=== PATIENT | female | born 1945 | race Caucasian/White ===

== ENCOUNTER → 2016-05-30 | Outpatient (CLI) | payer OTHER ==
[~2016-05-30] MED LIST: ASPIRIN EC325 M1; CALCIUM OYSTER500 MG; CYANOCOBALAM1000 MCG; NAPROSYN500 MG; PREDNISONE50 MG PO; SIMVASTATIN40 MG; VITAMIN D400 UNI1; VITAMIN E400 UNIT; ZANTAC 150MG T150 M1
== END ==
LOC: HYPER 06:59
DX: I87.2 Venous insufficiency (chronic) (peripheral) (principal); L97.812 Non-pressure chronic ulcer of other part of right lower leg with fat layer exposed; L97.822 Non-pressure chronic ulcer of other part of left lower leg with fat layer exposed; I10 Essential (primary) hypertension; I73.9 Peripheral vascular disease, unspecified; E78.5 Hyperlipidemia, unspecified; E03.9 Hypothyroidism, unspecified; Z87.891 Personal history of nicotine dependence

== ENCOUNTER → 2016-06-07 | Outpatient (CLI) | payer OTHER | LOC: HYPER 06:55 | DX: I87.2 Venous insufficiency (chronic) (peripheral) (principal); L97.821 Non-pressure chronic ulcer of other part of left lower leg limited to breakdown of skin; L97.811 Non-pressure chronic ulcer of other part of right lower leg limited to breakdown of skin; I73.9 Peripheral vascular disease, unspecified; I10 Essential (primary) hypertension; E78.5 Hyperlipidemia, unspecified; E03.9 Hypothyroidism, unspecified; Z87.891 Personal history of nicotine dependence ==

== ENCOUNTER → 2016-08-02 | Outpatient (CLI) | payer OTHER | LOC: HYPER 07:05 | DX: I87.2 Venous insufficiency (chronic) (peripheral) (principal); L97.822 Non-pressure chronic ulcer of other part of left lower leg with fat layer exposed; L97.812 Non-pressure chronic ulcer of other part of right lower leg with fat layer exposed; I10 Essential (primary) hypertension; I73.9 Peripheral vascular disease, unspecified; E78.5 Hyperlipidemia, unspecified; E03.9 Hypothyroidism, unspecified; Z87.891 Personal history of nicotine dependence ==

== ENCOUNTER 2016-08-09 18:24 | Inpatient (IN) | payer OTHER ==
[2016-08-09] VITALS (7 sets, daily range): BP systolic 143–159; BP diastolic 54–93
[~2016-08-09] VITALS: Ht 177.8 cm; Wt 91.2 kg
--- NOTE | ~2016-08-09 | H ---
[facility] [place] [address] HISTORY AND PHYSICAL Name: BRANDI MORROW Room #: 243-P [facility] IN M.R.#: [id number] Admission: 08/09/16 Attend Phys: Huber Turcios MD, Discharge: 08/11/16 Date of : 47 Report #: [id number] THIS REPORT FOR: //name// CC: Huber Morales DATE OF SERVICE: 08/09/2016 HISTORY OF PRESENT ILLNESS: The patient is a 70-year-old female transferred here from [place] where she had had an acute onset of painful right lower extremity, cool and significant right foot pain. Presented to the [place] Emergency Room between 12:00 and 1:00 today. Subsequently, found to have a cold extremity and transferred here at [facility], Dr. Castañeda had seen the patient on August 03 for nonhealing wounds, referred from Dr. Vilchis of wound care. He had recommended smoking cessation and undergone arteriogram, but it had only nonhealing wounds and not this acute pain at that setting, so he saw her a week ago. Scheduled for cardiac catheterization lab and vascular lab at on August 14. Subsequently, had this sudden attack of discomfort and transferred here to [facility]. She has been compliant with her medications. She does not actually have cardiac history. Longstanding tobacco use. MEDICATIONS: She was currently on vitamin D, vitamin E, ranitidine, Naprosyn, aspirin, levothyroxine, lisinopril 20, atorvastatin 40, fexofenadine hydrochlorothiazide 25, Trental 400 b.i.d. with meals and acyclovir. PAST MEDICAL HISTORY: Positive for the peripheral disease with prior stents in 2014, possibly in [facility]. There was a fem-fem bypass, possibly in 2006 . We have no records of this. Hypertension, hypercholesterolemia, hypothyroidism, COPD, tobacco use and DJD. PAST SURGICAL HISTORY: No other prior surgeries. FAMILY HISTORY: She is adopted, so it is unknown. SOCIAL HISTORY: She is . She has five children. She has had been a long time tobacco user, now down to 5 or so a day. No alcohol. Moderate caffeine. REVIEW OF SYSTEMS: Negative except for the progressive dyspnea and limitations by claudication. Also as stated above. ALLERGIES: CODEINE, TRIPLE ANTIBIOTIC, PENICILLIN, LEVAQUIN, DOXYCYCLINE, CEPHALOSPORIN and NEOMYCIN. LABORATORY DATA: Laboratory work apparently from [place], no need to review, but [address] [address] HISTORY AND PHYSICAL Name: BRANDI MORROW Room #: [address] [place] [address] IN M.R.#: [id number] Admission: 08/09/16 Attend Phys: Huber Turcios MD, Discharge: 08/11/16 Date of : 47 Report #: [id number] I am understanding the creatinine is somewhere between 1.4 and 1.6. H and H is 12 and 40.3. Potassium 3.0, creatinine 1.8, calcium 8.9 and GFR 29. White count was 12.3 and platelets 311. Liver function tests were normal. PHYSICAL EXAMINATION: GENERAL: She is to out of the IR suite, Dr. Castañeda was successful in opening the right common external iliac down to the femoral artery, but then significant clot. She is in still a fair amount of distress. VITAL SIGNS: Blood pressure 140/54 and pulse 60s. HEENT: Eyes reveal xanthelasmas. Pharynx is clear. NECK: Shows preserved upstrokes. Questionable faint right-sided bruit. No JVD. LUNGS: Have prolonged sitting phase. CARDIAC: S1 and S2 distant. ABDOMEN: Soft and faintly palpable aorta, although no significant bruit. It is not fairly large. EXTREMITIES: The right foot is cool. There are nonhealing bilateral ulcers, right greater than left on the medial aspect of the foot and ankle. I cannot palpate the distal pulses on the right, perhaps faintly on the left. She has no sensation to touch, but she can wiggle her foot and this is an improvement over the pre-intervention. SKIN: Warm and dry with the exception of the bilateral medial foot ulcers. ASSESSMENT: 1. Acute limb ischemia with right iliac occlusion. 2. Chronic kidney disease. 3. Degenerative joint disease. 4. Chronic obstructive pulmonary disease, continued tobacco use. 5. Hypertension. 6. Hypercholesterolemia. RECOMMENDATIONS AND PLAN: Hemodynamically, she is stable. Currently, has Integrilin and TPA in place for overnight drip, intra-arterial. It looks like this was initially caused by acute occlusion of the fem-fem graft with embolization of the right common, right popliteal arteries and infrapopliteal vessels. Emergency surgery was considered with Dr. Whiteside but they are trying recannulization with thrombolysis, maybe the safest way to proceed at this point. She is at high risk for an amputation and the family is aware. We will repeat a.m. lab. EKG in the morning and pain control the night, IV fluids and proceed back to reevaluate probably tomorrow early afternoon approximately 1800 hours from now. Certainly, this is a critical state here. Her cardiovascular status is stable currently. I have no records of her cardiovascular status, but obviously we could not evaluate this at this time and we will continue to follow closely. [facility] [place] [address] HISTORY AND PHYSICAL Name: BRANDI MORROW Room #: 243-P [facility] IN M.R.#: [id number] Admission: 08/09/16 Attend Phys: Huber Turcios MD, Discharge: 08/11/16 Date of : 47 Report #: [id number] Thank you for asking me to assist in the care of this patient. <ELECTRONICALLY SIGNED> By: Huber Turcios MD, FACC 08/15/16 0820 2329 0119 Huber Turcios MD, FACC /nt
--- NOTE | ~2016-08-09 | D ---
[facility] [place] [address] DISCHARGE SUMMARY Name: BRANDI MORROW Room #: [facility] IN M.R.#: [id number] Admission: 08/09/16 Attend Phys: Huber Turcios MD, Discharge: 08/11/16 Date of : 47 Report #: [id number] THIS REPORT FOR: //name// CC: Huber Morales MD HOSPITAL COURSE: A 70-year-old female who was admitted with acute right lower cold extremity. Emergently taken to the IR suite by Dr. Castañeda and was able to re-canalize the right common external iliac. There was a fem-fem graft occlusion from left to right and this was remained occluded. He used lytics and Integrilin drip and then subsequently came back and then placed a catheter more distal and was eventually able a clean-up the entire SFA and trifurcation. Final result was quite impressive. She had a cold, numb pulse for this foot and neurologically, was not intact, but this is now nearly completely returned to normal. She has been on aspirin, lisinopril 20, Lipitor 40, fexofenadine and hydrochlorothiazide. We will discontinue the Trental as we will go discharge on an anticoagulant and would favor perhaps a direct thrombin inhibitor, Pradaxa 150 b.i.d. with an aspirin and all of her remaining medications to continue, with the exception of the Trental. Tolerated this well with regards to any chest pain or anginal-type complaints, but will need further cardiac evaluation. Creatinine 1.0 today, potassium 4.6. H and H are 11 and 33, white count is 10. There was complete resolution of the thrombus to clarify, with good right posterior tibial and peroneal branch runoff to the plantar, which showed minimal residual. The anterior tibial artery on the right is occluded and believed to be chronic. The foot is warm, with good color and sensation. DISCHARGE DIAGNOSES: 1. Acute limb ischemia with acute arterial occlusion, fem-fem bypass, right iliac system and distal. 2. Hypertension. 3. Hypercholesterolemia. 4. Tobacco use. 5. Degenerative joint disease. 6. Hypothyroidism. 7. Chronic obstructive pulmonary disease. RECOMMENDATIONS AND PLAN: As stated above. Increase activity as tolerated. Has followup in 3 months with a repeat arterial Doppler and Dr. Castañeda and myself. We will consider some sort of further cardiac evaluation. He has noted progressive dyspnea and shortness of breath prior to this acute occlusion. It is quite impressive that Dr. Castañeda was able to restore patency of this arterial system of the right lower extremity. [address] [address] DISCHARGE SUMMARY Name: BRANDI MORROW Room #: [facility] IN M.R.#: [id number] Admission: 08/09/16 Attend Phys: Huber Turcios MD, Discharge: 08/11/16 Date of : 47 Report #: [id number] Thank you for asking us to assist in the care of this patient. <ELECTRONICALLY SIGNED> By: Huber Turcios MD, FACC 08/15/16 0820 0931 1010 Huber Turcios MD, FACC /nt
--- NOTE | ~2016-08-09 | HC ---
[facility] [place] [address] CONSULTATION Name: BRANDI MORROW Room #: [facility] IN M.R.#: [id number] Admission: 08/09/16 Attend Phys: Huber Turcios MD, Discharge: Date of : 47 Report #: [id number] THIS REPORT FOR: //name// CC: Huber Morales DATE OF SERVICE: 08/10/2016 This is an established patient. CHIEF COMPLAINT: Right foot acute ischemia. HISTORY OF PRESENT ILLNESS: This is a pleasant white female who I had been following for several weeks for chronic ulcerations on bilateral ankles. The patient called us on the night of her admission complaining of numbness below her right knee. The patient stated it came on fairly suddenly. The patient has history of known arterial disease and was actually scheduled for an outpatient angiogram next week by Dr. Castañeda. I asked the patient if she would call Dr. Castañeda to ask his opinion and she did. They felt that it was best for the patient to come to the emergency department. When she came to the emergency department, she was found to have a dusky colored right foot, which was cool to touch and they were unable to palpate pulses. Dr. Castañeda started the patient on TPA, and as of this morning, on the , the patient had complete resolution of the thrombus in her right common femoral artery and right profunda and right popliteal arteries. The patient states that her pain is markedly improved. Her sensation is improving. The patient has no other associated complaints at this time. The patient denies chest pain, shortness of breath, nausea, vomiting, diarrhea, fevers or chills. CURRENT MEDICATIONS: Reviewed. DRUG ALLERGIES: . PHYSICAL EXAMINATION: VITAL SIGNS: Stable. The patient is afebrile. The patient is in the ICU on the TPA drip. GENERAL: This is alert and oriented times 3, pleasant white female, who is in no acute distress. HEENT: Normocephalic, atraumatic. Mucous membranes are somewhat dry. Pupils are round. Sclerae are white. LUNGS: Have nonlabored respirations. HEART: Regular without murmur. ABDOMEN: Soft, nontender. EXTREMITIES: Evaluation of the bilateral lower extremities reveals 1+ dorsalis pedis pulse on the left, faint dorsalis pedis pulse on the right. Right foot is somewhat still slightly dusky, especially on the toes. However, the foot is [facility] [address] [place] [address] CONSULTATION Name: BRANDI MORROW Room #: 243-P [facility] IN M.R.#: [id number] Admission: 08/09/16 Attend Phys: Huber Turcios MD, Discharge: Date of : 47 Report #: [id number] currently warm. The patient has fairly normal movement of the foot. The toes have some slight tingling with palpation. The left foot is totally normal. Bilateral ulcerations are stable from clinic visit earlier this week. There is mix of granulation and slough, without signs of cellulitis. NEUROLOGIC: Cranial nerves 2-12 are grossly intact. Motor and sensory grossly intact. LABORATORY DATA: White count was 12.9, hemoglobin 10.7. BUN 22, creatinine 1.5. IMPRESSION: 1. Chronic bilateral ankle ulcerations with breakdown to the fat layer. 2. Peripheral arterial disease, status post acute ischemic event to the right foot, now status post TPA infusion. 3. History of tobaccoism. 4. Mild protein-calorie malnutrition. PLAN: At this time, for the wounds, we will put the patient on morphine and Silvadene compound to the wound base, cover this with Xeroform and then cover with an ABD. The patient will continue with antibiotics per Dr. Castañeda's orders. We will continue to follow the patient very closely. Also try to maximize the patient's protein supplementation for healing. I appreciate the ability to consult and we will continue to follow the patient. By: 0812 1106 Bakari Vilchis MD /nt
--- NOTE | ~2016-08-09 | EKG ---
[address] [address] ELECTROCARDIOGRAM REPORT Name: BRANDI MORROW Room #: 243- ADM IN M.R.#: [id number] Admission: 08/09/16 Attend Phys: Huber Turcios MD, Discharge: Date of : 47 Report #: [id number] THIS REPORT FOR: //name// [facility] Test Date: 2016-08-10 Test Time: 06:38:44 Pat Name: BRANDI MORROW Department: Room: 243 Gender: F Catalyst Concentration Operator: mina : 1945 Requested By: Huber Turcios Order Number: [id number] : Danyel Elizabeth Measurements Intervals [place] Rate: 67 P: 70 MD: 174 QRS: 46 QRSD: 84 T: 76 QT: 367 QTc: 388 Interpretive Statements Sinus rhythm Anteroseptal infarct, age indeterminate No previous ECG available for comparison Electronically Signed On 08-11-2016 13:23:27 CDT by Danyel Elizabeth [email or web address] <ELECTRONICALLY SIGNED> By: Danyel Elizabeth MD 08/11/16 1323 7 7 Danyel Elizabeth MD /BELGICA
--- NOTE | ~2016-08-09 | HC ---
[facility] [place] [address] CONSULTATION Name: BRANDI MORROW Room #: 243-P [facility] IN M.R.#: [id number] Admission: 08/09/16 Attend Phys: Huber Turcios MD, Discharge: 08/11/16 Date of : 47 Report #: [id number] THIS REPORT FOR: //name// CC: Huber Morales DATE OF SERVICE: 08/10/2016 We were asked by Dr. Castañeda to see the patient. HISTORY OF PRESENT ILLNESS: The patient is a 70-year-old with acute arterial insufficiency. The patient states that yesterday the foot became cold and later lost motion and sensation. The patient has a history of arterial occlusive disease in the past. Sometime the patient had a right common iliac stent placement and in 2014 the patient had a femoral-femoral bypass. The patient has been seen in the wound care clinic for nonhealing lesions in [place] [facility] [place] and then in the throes of this, the acute arterial insufficiency developed yesterday. We note that last night the patient was taken acutely to the labor arbitrator hearing office by Dr. Castañeda. Dr. Castañeda was able to a pass a wire from the left femoral artery through an occlusion of the right common iliac and opened the occluded common and external iliac with stent placement. TPA was dripped through the night and the patient had improvement in her symptoms by morning. PAST MEDICAL HISTORY: Significant for pernicious anemia, arterial occlusive disease, hyperlipidemia, gastroesophageal reflux disease, leg ulcers. MEDICATIONS AT HOME: Aspirin, vitamin E, calcium, Naprosyn, ranitidine, vitamin D, levothyroxine, lisinopril, atorvastatin, fexofenadine, hydrochlorothiazide, pentoxifylline, valacyclovir. ALLERGIES: BACITRACIN, CEPHALOSPORIN, CODEINE, COLISTIMETHATE, DOXYCYCLINE, GRAMICIDIN, LEVOFLOXACIN, PENICILLINS, POLYMYXIN B, TETRACYCLINE, NEOMYCIN, , PIROXICAM. SOCIAL HISTORY: The patient continues to smoke tobacco. REVIEW OF SYSTEMS: CONSTITUTIONAL: No fever or chills. EYES: Wears glasses. No vision changes. No eye pain. HEENT: No hearing changes, nasal drainage, sore throat. RESPIRATORY: No cough, shortness of breath, sputum production. CARDIOVASCULAR: No chest pain. GASTROINTESTINAL: No nausea, vomiting, diarrhea. GENITOURINARY: No burning, frequency, urgency. [address] [address] CONSULTATION Name: BRANDI MORROW Room #: 243-P [facility] IN ..#: [id number] Admission: 08/09/16 Attend Phys: Huber Turcios MD, Discharge: 08/11/16 Date of : 47 Report #: [id number] MUSCULOSKELETAL: No new bone or joint pain. SKIN: No rash or infection. We do note the nonhealing lesions being treated in the right gaiter area. NEUROLOGIC: Motor and sensory changes with the acute arterial insufficiency, none before. PHYSICAL EXAMINATION: VITAL SIGNS: Temperature 36.4, heart rate 69, respiratory rate 12, blood pressure 100/50. HEENT: No scleral icterus, no arcus. Pupils equal, round, gaze conjugate. No oral or nasal injection. NECK: No mass, no lymphadenopathy, no bruit. CHEST: Clear to auscultation. HEART: Rhythm regular, no murmur. ABDOMEN: Soft. EXTREMITIES: Left lower extremity catheter is in the left femoral artery. Left leg is warm and pink. No edema. Right leg warm to calf. Foot is and somewhat pale relative to left. Femoral pulse 1+ on right. I do not feel right popliteal pulse or dorsalis pedis or posterior tibial pulse. There is a signal in the popliteal fossa. There is some motion in the right foot and sensation where as there was little to none last night at the outset of treatment. ASSESSMENT: The patient has acute arterial insufficiency with an acute occlusion of the femoral-femoral bypass. Circulation has been restored with Dr. Castañeda's procedure, but TPA and Integrilin continued to be instilled over the day in the hopes that more recovery will eventuate in the distal arterial system. At this point, we plan no surgical intervention, but will follow along. Thank you for the consult. <ELECTRONICALLY SIGNED> By: dAitya Walton MD 08/23/16 0814 1055 1808 Aditya Walton MD /nt
[~2016-08-09 18:24] MED LIST changes: -ALLERGY RELIEF180 MG PO; -CALCIUM 600 +1 EAC1 PO; -HYDROCHLOROTHIA25 M2 PO; -LEVOTHYROXINE0.05 MG PO; -LIPITOR40 MG PO; -LISINOPRIL20 MG PO; -PENTOXIFYLLINE400 MG PO; -PRADAXA150 MG PO; -VALACYCLOVIR HCL1 GM PO; -VITAMIN D5000 UNIT PO
[2016-08-09] MEDS ORDERED: CALCIUM 600 +1 EAC1 PO (19:05)
[2016-08-09] MEDS ORDERED: VITAMIN D5000 UNIT PO (19:06)
[2016-08-09] MEDS ORDERED: LEVOTHYROXINE0.05 MG PO (19:08)
[2016-08-09] MEDS ORDERED: LISINOPRIL20 MG PO (19:08)
[2016-08-09] MEDS ORDERED: ALLERGY RELIEF180 MG PO (19:09)
[2016-08-09] MEDS ORDERED: LIPITOR40 MG PO (19:09)
[2016-08-09] MEDS ORDERED: PENTOXIFYLLINE400 MG PO (19:10)
[2016-08-09] MEDS ORDERED: HYDROCHLOROTHIA25 M2 PO (19:10)
[2016-08-09] MEDS ORDERED: VALACYCLOVIR HCL1 GM PO (19:11)
[2016-08-10] VITALS (31 sets, daily range): BP systolic 89–168; BP diastolic 45–89
[2016-08-10 05:06] LABS: HEMATOCRIT 32.5 % (37.0-47.0); HEMOGLOBIN 10.7 gm/dL (12.0-15.0); MCHC 32.8 g/dL (28.0-37.0); MCV 91.4 fL (80.0-100.0); RBC 3.56 mil/uL (4.20-5.00); RDW 14.2 % (10.5-14.5); WBC 12.9 thou/uL (4.0-11.0)
[2016-08-10 05:16] LABS: CALCIUM 7.9 mg/dL (8.5-10.1); CREATININE 1.5 mg/dL (0.6-1.3); POTASSIUM 4.3 mmol/L (3.5-5.1)
[2016-08-10 18:21] LABS: MCH 30.2 pg (26.0-34.0); MCHC 33.2 g/dL (28.0-37.0); RBC 3.63 mil/uL (4.20-5.00); RDW 14.6 % (10.5-14.5)
[2016-08-10 18:35] LABS: APTT 28.5 Seconds (24.5-32.8); INR 1.1; PROTIME 11.9 Seconds (9.3-11.4)
[2016-08-11] VITALS (13 sets, daily range): BP systolic 89–153; BP diastolic 51–89
[2016-08-11 09:07] LABS: CALCIUM 8.2 mg/dL (8.5-10.1); POTASSIUM 4.6 mmol/L (3.5-5.1)
[2016-08-11] MEDS ORDERED: PRADAXA150 MG PO (09:29)
== END 2016-08-11 13:30 | disposition home or self-care (01) | DRG 253 ==
LOC: ER 18:24 → ICU 18:44 → EROBS 18:44 → ICU 19:55
PROVIDERS: Internal Medicine Cardiovascular Disease; Nuclear Medicine Nuclear Cardiology; Nurse Practitioner Gerontology
PROC: 047H3DZ Dilation of Right External Iliac Artery with Intraluminal Device, Percutaneous Approach (ICD-10-PCS; principal; 2016-08-09)
PROC: B41 Imaging, Lower Arteries, Fluoroscopy (ICD-10-PCS; principal; 2016-08-09)
PROC: B41 Imaging, Lower Arteries, Fluoroscopy (ICD-10-PCS; principal; 2016-08-09)
PROC: 3E03317 Introduction of Other Thrombolytic into Peripheral Vein, Percutaneous Approach (ICD-10-PCS; principal; 2016-08-09)
PROC: 047C3DZ Dilation of Right Common Iliac Artery with Intraluminal Device, Percutaneous Approach (ICD-10-PCS; principal; 2016-08-09)
PROC: 3E05017 Introduction of Other Thrombolytic into Peripheral Artery, Open Approach (ICD-10-PCS; 2016-08-10)
DX: I74.5 Embolism and thrombosis of iliac artery (principal); N17.9 Acute kidney failure, unspecified; E44.1 Mild protein-calorie malnutrition; L97.329 Non-pressure chronic ulcer of left ankle with unspecified severity; L97.319 Non-pressure chronic ulcer of right ankle with unspecified severity; M19.90 Unspecified osteoarthritis, unspecified site; J44.9 Chronic obstructive pulmonary disease, unspecified; E78.5 Hyperlipidemia, unspecified; I73.9 Peripheral vascular disease, unspecified; I99.8 Other disorder of circulatory system; I12.9 Hypertensive chronic kidney disease with stage 1 through stage 4 chronic kidney disease, or unspecified chronic kidney disease; N18.9 Chronic kidney disease, unspecified; F17.210 Nicotine dependence, cigarettes, uncomplicated; I77.1 Stricture of artery; E78.00 Pure hypercholesterolemia, unspecified; E03.9 Hypothyroidism, unspecified; Z88.1 Allergy status to other antibiotic agents; Z88.6 Allergy status to analgesic agent; Z88.0 Allergy status to penicillin; Z88.8 Allergy status to other drugs, medicaments and biological substances; Z68.28 Body mass index [BMI] 28.0-28.9, adult; Z79.82 Long term (current) use of aspirin; Z79.899 Other long term (current) drug therapy
CPT/HCPCS: 10078

== ENCOUNTER → 2016-08-09 | Outpatient (CLI) | payer OTHER ==
[~2016-08-09] MED LIST changes: +ALLERGY RELIEF180 MG PO; +CALCIUM 600 +1 EAC1 PO; +HYDROCHLOROTHIA25 M2 PO; +LEVOTHYROXINE0.05 MG PO; +LIPITOR40 MG PO; +LISINOPRIL20 MG PO; -NAPROSYN500 MG; +NAPROSYN500 MG PO; +PENTOXIFYLLINE400 MG PO; +PRADAXA150 MG PO; +VALACYCLOVIR HCL1 GM PO; +VITAMIN D5000 UNIT PO; -ZANTAC 150MG T150 M1; +ZANTAC 150MG T150 M1 PO
== END ==
LOC: HYPER 07:17
DX: I87.2 Venous insufficiency (chronic) (peripheral) (principal); L97.812 Non-pressure chronic ulcer of other part of right lower leg with fat layer exposed; L97.822 Non-pressure chronic ulcer of other part of left lower leg with fat layer exposed; I73.9 Peripheral vascular disease, unspecified; I10 Essential (primary) hypertension; E03.9 Hypothyroidism, unspecified; E78.5 Hyperlipidemia, unspecified; Z87.891 Personal history of nicotine dependence

== ENCOUNTER → 2016-08-23 | Outpatient (CLI) | payer OTHER ==
[~2016-08-23] MED LIST changes: +ALLERGY RELIEF180 MG PO; +CALCIUM 600 +1 EAC1 PO; +HYDROCHLOROTHIA25 M2 PO; +LEVOTHYROXINE0.05 MG PO; +LIPITOR40 MG PO; +LISINOPRIL20 MG PO; +PENTOXIFYLLINE400 MG PO; +PRADAXA150 MG PO; +VALACYCLOVIR HCL1 GM PO; +VITAMIN D5000 UNIT PO
== END ==
LOC: HYPER 07:03
DX: I87.2 Venous insufficiency (chronic) (peripheral) (principal); L97.812 Non-pressure chronic ulcer of other part of right lower leg with fat layer exposed; L97.822 Non-pressure chronic ulcer of other part of left lower leg with fat layer exposed; I73.9 Peripheral vascular disease, unspecified; I10 Essential (primary) hypertension; E78.5 Hyperlipidemia, unspecified; E03.9 Hypothyroidism, unspecified; Z87.891 Personal history of nicotine dependence

== ENCOUNTER → 2016-09-06 | Outpatient (CLI) | payer OTHER | LOC: HYPER 07:06 | DX: I87.2 Venous insufficiency (chronic) (peripheral) (principal); L97.812 Non-pressure chronic ulcer of other part of right lower leg with fat layer exposed; L97.822 Non-pressure chronic ulcer of other part of left lower leg with fat layer exposed; I10 Essential (primary) hypertension; I73.9 Peripheral vascular disease, unspecified; E78.5 Hyperlipidemia, unspecified; E03.9 Hypothyroidism, unspecified; Z87.891 Personal history of nicotine dependence ==

== ENCOUNTER → 2016-09-20 | Outpatient (CLI) | payer OTHER | LOC: HYPER 06:59 | DX: I87.2 Venous insufficiency (chronic) (peripheral) (principal); L97.812 Non-pressure chronic ulcer of other part of right lower leg with fat layer exposed; L97.822 Non-pressure chronic ulcer of other part of left lower leg with fat layer exposed; I73.9 Peripheral vascular disease, unspecified; I10 Essential (primary) hypertension; E78.5 Hyperlipidemia, unspecified; E03.9 Hypothyroidism, unspecified; Z87.891 Personal history of nicotine dependence ==

== ENCOUNTER → 2016-10-12 | Outpatient (CLI) | payer OTHER | LOC: HYPER 07:11 | DX: I87.2 Venous insufficiency (chronic) (peripheral) (principal); L97.812 Non-pressure chronic ulcer of other part of right lower leg with fat layer exposed; L97.822 Non-pressure chronic ulcer of other part of left lower leg with fat layer exposed; I73.9 Peripheral vascular disease, unspecified; I10 Essential (primary) hypertension; E78.5 Hyperlipidemia, unspecified; E03.9 Hypothyroidism, unspecified; Z87.891 Personal history of nicotine dependence ==

== ENCOUNTER → 2016-11-01 | Outpatient (CLI) | payer OTHER | LOC: HYPER 07:00 | DX: I87.2 Venous insufficiency (chronic) (peripheral) (principal); L97.812 Non-pressure chronic ulcer of other part of right lower leg with fat layer exposed; L97.822 Non-pressure chronic ulcer of other part of left lower leg with fat layer exposed; I10 Essential (primary) hypertension; E78.5 Hyperlipidemia, unspecified; E03.9 Hypothyroidism, unspecified; I73.9 Peripheral vascular disease, unspecified; Z87.891 Personal history of nicotine dependence ==

== ENCOUNTER → 2016-11-22 | Outpatient (CLI) | payer OTHER | LOC: HYPER 06:53 | DX: I87.2 Venous insufficiency (chronic) (peripheral) (principal); L97.822 Non-pressure chronic ulcer of other part of left lower leg with fat layer exposed; L97.812 Non-pressure chronic ulcer of other part of right lower leg with fat layer exposed; I73.9 Peripheral vascular disease, unspecified; I10 Essential (primary) hypertension; E78.5 Hyperlipidemia, unspecified; E03.9 Hypothyroidism, unspecified; Z87.891 Personal history of nicotine dependence ==

== ENCOUNTER → 2016-12-06 | Outpatient (CLI) | payer OTHER | LOC: HYPER 06:56 | DX: I87.2 Venous insufficiency (chronic) (peripheral) (principal); L97.812 Non-pressure chronic ulcer of other part of right lower leg with fat layer exposed; L97.822 Non-pressure chronic ulcer of other part of left lower leg with fat layer exposed; I73.9 Peripheral vascular disease, unspecified; I10 Essential (primary) hypertension; E78.5 Hyperlipidemia, unspecified; E03.9 Hypothyroidism, unspecified; Z87.891 Personal history of nicotine dependence ==

== ENCOUNTER → 2017-01-03 | Outpatient (CLI) | payer OTHER | LOC: HYPER 06:50 | DX: I87.2 Venous insufficiency (chronic) (peripheral) (principal); L97.812 Non-pressure chronic ulcer of other part of right lower leg with fat layer exposed; L97.822 Non-pressure chronic ulcer of other part of left lower leg with fat layer exposed; I73.9 Peripheral vascular disease, unspecified; I10 Essential (primary) hypertension; E78.5 Hyperlipidemia, unspecified; E03.9 Hypothyroidism, unspecified; Z87.891 Personal history of nicotine dependence ==

== ENCOUNTER → 2017-01-24 | Outpatient (CLI) | payer OTHER | LOC: HYPER 06:43 | DX: I87.2 Venous insufficiency (chronic) (peripheral) (principal); L97.812 Non-pressure chronic ulcer of other part of right lower leg with fat layer exposed; L97.822 Non-pressure chronic ulcer of other part of left lower leg with fat layer exposed; I73.9 Peripheral vascular disease, unspecified; I10 Essential (primary) hypertension; E78.5 Hyperlipidemia, unspecified; E03.9 Hypothyroidism, unspecified; Z87.891 Personal history of nicotine dependence ==

== ENCOUNTER → 2017-02-14 | Outpatient (CLI) | payer OTHER | LOC: HYPER 07:00 | DX: I87.2 Venous insufficiency (chronic) (peripheral) (principal); L97.822 Non-pressure chronic ulcer of other part of left lower leg with fat layer exposed; L97.812 Non-pressure chronic ulcer of other part of right lower leg with fat layer exposed; I10 Essential (primary) hypertension; I73.9 Peripheral vascular disease, unspecified; E78.5 Hyperlipidemia, unspecified; E03.9 Hypothyroidism, unspecified; Z87.891 Personal history of nicotine dependence ==

== ENCOUNTER → 2017-03-07 | Outpatient (CLI) | payer OTHER | LOC: HYPER 06:57 | DX: I87.2 Venous insufficiency (chronic) (peripheral) (principal); L97.812 Non-pressure chronic ulcer of other part of right lower leg with fat layer exposed; L97.822 Non-pressure chronic ulcer of other part of left lower leg with fat layer exposed; I73.9 Peripheral vascular disease, unspecified; E78.5 Hyperlipidemia, unspecified; E03.9 Hypothyroidism, unspecified; Z87.891 Personal history of nicotine dependence ==

== ENCOUNTER → 2017-04-10 | Outpatient (CLI) | payer OTHER | LOC: HYPER 07:04 | DX: I87.2 Venous insufficiency (chronic) (peripheral) (principal); L97.812 Non-pressure chronic ulcer of other part of right lower leg with fat layer exposed; L97.822 Non-pressure chronic ulcer of other part of left lower leg with fat layer exposed; I73.9 Peripheral vascular disease, unspecified; I10 Essential (primary) hypertension; E78.5 Hyperlipidemia, unspecified; E03.9 Hypothyroidism, unspecified; Z87.891 Personal history of nicotine dependence ==

== ENCOUNTER → 2017-05-22 | Outpatient (CLI) | payer OTHER | LOC: HYPER 06:37 | DX: I87.2 Venous insufficiency (chronic) (peripheral) (principal); L97.812 Non-pressure chronic ulcer of other part of right lower leg with fat layer exposed; L97.822 Non-pressure chronic ulcer of other part of left lower leg with fat layer exposed; I73.9 Peripheral vascular disease, unspecified; I10 Essential (primary) hypertension; E03.9 Hypothyroidism, unspecified; E78.5 Hyperlipidemia, unspecified; Z87.891 Personal history of nicotine dependence ==

== ENCOUNTER → 2017-06-12 | Outpatient (CLI) | payer OTHER | LOC: HYPER 06:36 | DX: I87.2 Venous insufficiency (chronic) (peripheral) (principal); L97.812 Non-pressure chronic ulcer of other part of right lower leg with fat layer exposed; L97.822 Non-pressure chronic ulcer of other part of left lower leg with fat layer exposed; I73.9 Peripheral vascular disease, unspecified; I10 Essential (primary) hypertension; E78.5 Hyperlipidemia, unspecified; E03.9 Hypothyroidism, unspecified; Z87.891 Personal history of nicotine dependence ==

== ENCOUNTER → 2017-07-10 | Outpatient (CLI) | payer OTHER | LOC: HYPER 07-03 06:49 | DX: L97.821 Non-pressure chronic ulcer of other part of left lower leg limited to breakdown of skin (principal); L97.321 Non-pressure chronic ulcer of left ankle limited to breakdown of skin; L97.311 Non-pressure chronic ulcer of right ankle limited to breakdown of skin; I87.2 Venous insufficiency (chronic) (peripheral); I73.9 Peripheral vascular disease, unspecified; I10 Essential (primary) hypertension; E78.5 Hyperlipidemia, unspecified; E03.9 Hypothyroidism, unspecified; Z87.891 Personal history of nicotine dependence ==

== ENCOUNTER → 2017-08-06 | Outpatient (CLI) | payer OTHER | LOC: HYPER 07-30 06:59 | DX: L97.812 Non-pressure chronic ulcer of other part of right lower leg with fat layer exposed (principal); L97.822 Non-pressure chronic ulcer of other part of left lower leg with fat layer exposed; I87.2 Venous insufficiency (chronic) (peripheral); I73.9 Peripheral vascular disease, unspecified; I10 Essential (primary) hypertension; E78.5 Hyperlipidemia, unspecified; E03.9 Hypothyroidism, unspecified; Z87.891 Personal history of nicotine dependence ==

== ENCOUNTER → 2019-05-20 | Outpatient (CLI) | payer OTHER | LOC: SJCVC 08:55 | DX: Z51.81 Encounter for therapeutic drug level monitoring (principal); E03.9 Hypothyroidism, unspecified; I10 Essential (primary) hypertension; I73.9 Peripheral vascular disease, unspecified; M19.90 Unspecified osteoarthritis, unspecified site; Z79.01 Long term (current) use of anticoagulants ==

== ENCOUNTER → 2019-07-10 | Outpatient (CLI) | payer OTHER | LOC: SJCVC 08:41 | DX: Z51.81 Encounter for therapeutic drug level monitoring (principal); M19.90 Unspecified osteoarthritis, unspecified site; E78.00 Pure hypercholesterolemia, unspecified; I10 Essential (primary) hypertension; E03.9 Hypothyroidism, unspecified; I73.9 Peripheral vascular disease, unspecified; Z79.01 Long term (current) use of anticoagulants ==

== ENCOUNTER → 2019-08-08 | Outpatient (CLI) | payer OTHER | LOC: SJCVC 08:17 | DX: Z51.81 Encounter for therapeutic drug level monitoring (principal); I10 Essential (primary) hypertension; E78.00 Pure hypercholesterolemia, unspecified; M19.90 Unspecified osteoarthritis, unspecified site; Z79.01 Long term (current) use of anticoagulants; Z79.82 Long term (current) use of aspirin; Z79.899 Other long term (current) drug therapy ==

== ENCOUNTER → 2019-09-05 | Outpatient (CLI) | payer OTHER | LOC: SJCVC 07:37 | DX: Z51.81 Encounter for therapeutic drug level monitoring (principal); I10 Essential (primary) hypertension; E78.00 Pure hypercholesterolemia, unspecified; E03.9 Hypothyroidism, unspecified; M19.90 Unspecified osteoarthritis, unspecified site; Z79.01 Long term (current) use of anticoagulants; Z79.899 Other long term (current) drug therapy ==

== ENCOUNTER → 2019-10-31 | Outpatient (CLI) | payer OTHER | LOC: SJCVC 08:09 | PROVIDERS: ATTEND Internal Medicine Cardiovascular Disease | DX: Z51.81 Encounter for therapeutic drug level monitoring (principal); E03.9 Hypothyroidism, unspecified; I10 Essential (primary) hypertension; I73.9 Peripheral vascular disease, unspecified; I65.23 Occlusion and stenosis of bilateral carotid arteries; M19.90 Unspecified osteoarthritis, unspecified site; E78.00 Pure hypercholesterolemia, unspecified; Z79.01 Long term (current) use of anticoagulants ==

== ENCOUNTER → 2019-12-01 | Outpatient (CLI) | payer OTHER | LOC: SJCVC 07:40 | PROVIDERS: ATTEND Internal Medicine Cardiovascular Disease | DX: Z51.81 Encounter for therapeutic drug level monitoring (principal); Z79.01 Long term (current) use of anticoagulants ==

== ENCOUNTER → 2019-12-15 | Outpatient (CLI) | payer OTHER | LOC: SJCVC 07:34 | PROVIDERS: ATTEND Internal Medicine Cardiovascular Disease | DX: Z51.81 Encounter for therapeutic drug level monitoring (principal); Z87.891 Personal history of nicotine dependence ==

== ENCOUNTER → 2020-01-12 | Outpatient (CLI) | payer OTHER | LOC: SJCVC 07:45 | PROVIDERS: ATTEND Internal Medicine Cardiovascular Disease | DX: Z51.81 Encounter for therapeutic drug level monitoring (principal); E03.9 Hypothyroidism, unspecified; I10 Essential (primary) hypertension; I73.9 Peripheral vascular disease, unspecified; E78.00 Pure hypercholesterolemia, unspecified; Z79.01 Long term (current) use of anticoagulants; Z79.899 Other long term (current) drug therapy ==

== ENCOUNTER → 2020-01-20 | Outpatient (CLI) | payer OTHER | LOC: SJCVC 12:13 | PROVIDERS: ATTEND Internal Medicine Cardiovascular Disease | DX: Z51.81 Encounter for therapeutic drug level monitoring (principal); E03.9 Hypothyroidism, unspecified; I10 Essential (primary) hypertension; I73.9 Peripheral vascular disease, unspecified; M19.90 Unspecified osteoarthritis, unspecified site; E78.00 Pure hypercholesterolemia, unspecified; Z79.01 Long term (current) use of anticoagulants; Z79.899 Other long term (current) drug therapy ==

== ENCOUNTER → 2020-02-05 | Outpatient (CLI) | payer OTHER | LOC: SJCVCIMAG 07:30 | PROVIDERS: ATTEND Internal Medicine Cardiovascular Disease | DX: I65.23 Occlusion and stenosis of bilateral carotid arteries (principal); I73.9 Peripheral vascular disease, unspecified; I25.10 Atherosclerotic heart disease of native coronary artery without angina pectoris; E78.00 Pure hypercholesterolemia, unspecified; I10 Essential (primary) hypertension; F17.210 Nicotine dependence, cigarettes, uncomplicated; Z79.899 Other long term (current) drug therapy ==

== ENCOUNTER → 2020-09-07 | Outpatient (CLI) | payer OTHER | LOC: SJCVCIMAG 08:41 | PROVIDERS: ATTEND Internal Medicine Cardiovascular Disease | DX: I70.203 Unspecified atherosclerosis of native arteries of extremities, bilateral legs (principal); I77.9 Disorder of arteries and arterioles, unspecified; I25.10 Atherosclerotic heart disease of native coronary artery without angina pectoris; I10 Essential (primary) hypertension; E78.00 Pure hypercholesterolemia, unspecified; K21.9 Gastro-esophageal reflux disease without esophagitis; E78.5 Hyperlipidemia, unspecified; I65.23 Occlusion and stenosis of bilateral carotid arteries; F17.210 Nicotine dependence, cigarettes, uncomplicated; Z88.1 Allergy status to other antibiotic agents; Z88.0 Allergy status to penicillin; Z88.8 Allergy status to other drugs, medicaments and biological substances; Z88.5 Allergy status to narcotic agent; Z79.82 Long term (current) use of aspirin; Z79.899 Other long term (current) drug therapy; Z95.820 Peripheral vascular angioplasty status with implants and grafts ==

== ENCOUNTER 2021-02-16 10:16 | Inpatient (IN) | payer OTHER ==
[~2021-02-16] VITALS: Ht 177.8 cm; Wt 93.0 kg
--- NOTE | ~2021-02-16 | O ---
[facility] [place] [address] OPERATIVE REPORT Name: BRANDI MORROW Room #: 457-P ADM IN M.R.#: [id number] Admission: 02/16/21 Attend Phys: Malcom Allen MD Discharge: Date of : 47 Report #: [id number] THIS REPORT FOR: cc: Reynaldo Mckeon MD, David R. MD Kneidel, Matthew T. MD ~ DATE OF SERVICE: 02/18/2021 PREOPERATIVE DIAGNOSIS: Left leg chronic wound. POSTOPERATIVE DIAGNOSIS: Left leg chronic wound. PROCEDURE: Left leg wound irrigation and debridement. SURGEON: David Hernandez MD ROLLER STAINER: None. ANESTHESIA: General. ESTIMATED BLOOD LOSS: Minimal. DRAINS: No drains. TOURNIQUET TIME: 10 minutes. DESCRIPTION OF PROCEDURE: The patient was brought to the operating room where she was placed under general anesthesia. Once under adequate general anesthesia, her left lower extremity was prepped and draped in a sterile manner. The extremity was elevated and tourniquet placed to 300 mmHg. Utilizing the Bag [employer]orrow or [employer] ultrasonic debrider, the wound which was 6 cm in length and 4 cm in width, was then debrided of any necrotic tissue. Good bleeding edges and a bleeding base was then able to be attained. This was at the distal medial tibia and just posterior to this. Excellent debridement was achieved. The wound was then dressed with a wet-to-dry dressing with normal saline gauze. Tourniquet was let down at approximately 10 minutes. Toes were pink and warm with good capillary refill. There were no complications from the procedure. The patient tolerated the procedure well and went to the recovery room without incident. By: 1351 1416 David Hernandez MD /nt
--- NOTE | ~2021-02-16 | HC ---
[facility] [place] [address] CONSULTATION Name: BRANDI MORROW Room #: 457-P [facility] IN M.R.#: [id number] Admission: 02/16/21 Attend Phys: Malcom Allen MD Discharge: 02/21/21 Date of : 47 Report #: [id number] THIS REPORT FOR: cc: Reynaldo Mckeon MD, David R. MD Stephens, Thad A. MD ~ DATE OF SERVICE: 02/17/2021 WOUND CARE CONSULTATION PERSONAL PHYSICIAN: None on staff. CHIEF COMPLAINT: Left medial ankle ulceration. HISTORY OF PRESENT ILLNESS: This is a 75-year-old white female with a history of peripheral vascular disease, who I have seen in the past for vascular leg ulcers, which were slow to heal. The patient states that this current one on her left leg started approximately a month ago, it has gotten progressively worse. The patient denies much pain associated with this. The patient states she has had increased amount of greenish drainage from the ulceration and was concerned about a possible infection, which prompted her to come to the hospital, being admitted for evaluation. We have been asked to care for the wound at this time. Orthopedics has also been consulted as well. PAST MEDICAL HISTORY: Lower extremity arterial disease, hypertension, reflux, hypercholesterolemia, chronic ulcers, venous insufficiency. CURRENT MEDICATIONS: Multiple, reviewed the patient's medication list. DRUG ALLERGIES: NEOMYCIN, BACITRACIN, PENICILLIN, CEPHALOSPORINS, TETRACYCLINE AND QUINOLONES. SOCIAL HISTORY: The patient smokes half pack of cigarettes daily for 50 years. Denies alcohol use. FAMILY HISTORY: Not pertinent to current medical condition. REVIEW OF SYSTEMS: CONSTITUTIONAL: The patient denies fevers, chills. NEUROLOGIC: The patient denies numbness, tingling, weakness in arms or legs. EYES: No complaints. ENT: No complaints. CARDIAC: The patient denies chest pain, palpitations. Has chronic mild lower extremity edema. RESPIRATORY: The patient denies shortness of breath, cough, wheezes. GASTROINTESTINAL: The patient denies nausea, vomiting, abdominal pain. [facility] [address] [place] [address] CONSULTATION Name: BRANDI MORROW Room #: 457-P [facility] IN M.R.#: [id number] Admission: 02/16/21 Attend Phys: Malcom Allen MD Discharge: 02/21/21 Date of : 47 Report #: [id number] GENITOURINARY: The patient denies urgency or frequency. MUSCULOSKELETAL: No complaints. SKIN: There is chronic ulceration of left medial ankle with scar tissue on both lower extremities from previous ulcerations. PHYSICAL EXAMINATION: VITAL SIGNS: Stable. The patient is afebrile. GENERAL: This is alert and oriented x3, pleasant white female who is in no acute distress. HEENT: Head is normocephalic, atraumatic. Mucous membranes are moist. Pupils are round. Sclerae white. NECK: Without JVD. LUNGS: Clear. HEART: Regular. ABDOMEN: Soft, nontender. EXTREMITIES: The patient moves all extremities without difficulty. Evaluation of left medial ankle reveals a chronic ulceration with 100% slough filled. There is mild tenderness to palpation. There is moderate amount of serosanguineous drainage noted. There is no significant odor. Distal pulses are 1+. No other associated open wounds are noted. NEUROLOGIC: Cranial nerves 2-12 are grossly intact. Motor and sensory are grossly intact. LABORATORY VALUES: White count 6.9, hemoglobin 10.5. BUN 16, creatinine 1.1. Albumin 3.6. IMPRESSION: 1. Chronic ulcer, left medial ankle, consistent with mixed vascular disease. 2. History of peripheral arterial disease. 3. History of venous insufficiency. 4. History of chronic obstructive pulmonary disease. 5. Generalized debility. PLAN: We will order arterial Dopplers to evaluate for underlying arterial disease. I spoke with of orthopedics who is planning on taking the patient to the operating room today for Misonix debridement. In the meantime, we will start Dakin's wet-to-dry dressings b.i.d. on the ulcer and p.r.n. We will make sure we continue all other current medications. We will utilize physical and occupational therapy for strengthening. By: 1322 0141 Bakari Vilchis MD /nt
[2021-02-16 10:20] VITALS: BP 163/55
[2021-02-16 10:47] LABS: ABSOLUTE NEUTROPHILS 7.1 thou/uL (1.4-8.2); BASOPHILS 0.5 % (0.0-2.0); EOSINOPHILS 3.4 % (0.0-3.0); HEMATOCRIT 36.6 % (37.0-47.0); HEMOGLOBIN 11.8 gm/dL (12.0-15.0); LYMPHOCYTES 14.4 % (24.0-44.0); MCH 32.6 pg (26.0-34.0); MCHC 32.3 g/dL (28.0-37.0); MONOCYTES 8.5 % (1.0-8.0); PLATELET COUNT 357 thou/uL (150-400); POLYS 73.2 % (36.0-66.0); RBC 3.63 mil/uL (4.20-5.00); RDW 14.1 % (10.5-14.5); WBC 9.7 thou/uL (4.0-11.0)
[2021-02-16 11:23] LABS: CALCIUM 9.1 mg/dL (8.5-10.1); CREATININE 1.4 mg/dL (0.6-1.0); POTASSIUM 3.8 mmol/L (3.5-5.1)
[2021-02-16 11:30] LABS: ALBUMIN 3.6 g/dL (3.4-5.0); TOTAL BILIRUBIN 0.4 mg/dL (0.2-1.0); TOTAL PROTEIN 6.6 g/dL (6.4-8.2)
[2021-02-16 13:38] VITALS: BP 143/68
[2021-02-16] MEDS ORDERED: ACID REDUCER20 MG PO (13:51)
[2021-02-16 14:17] VITALS: BP 161/48
[2021-02-16] MEDS ORDERED: SYMBICORT80 MCG/4.1 PO (15:25)
[2021-02-16] MEDS ORDERED: SYMBICORT80 MCG/4.1 (15:31)
--- NOTE | 2021-02-16 16:02 | NUR ---
TODAY THIS PT IS A NEW ADMISSION AND SHE HAS HAD SOME STATED LEFT ANKLE PAIN IN WHICH SHE WAS MEDICATED. SHE HAS HAD HER WOUND ON HER LEFT ANKLE DRESSED WITH A WET TO DRY DRESSING FOR NOW UNTIL WOUND CARE SEES HER BUT OTHERWISE SHE AWAITS FOR THE NEXT PLAN.
[2021-02-16 20:15] VITALS: BP 152/65
--- NOTE | 2021-02-17 01:49 | NUR ---
ASSUMED CARE OF PT AT 1900.BEDSIDE REPORT RECIEVED. SUGAR ASSESSMENT COMPLETE. PT HAS DRY COUGH, PER PT D/T ASTHMA. [address] IVF INFUSING PER ORDERS. MEDS ADMINISTERED PER MAR, PRN NORCO GIVEN FOR LLE PAIN WHERE WOUND IS. LLE DRESSING CDI C NO APPARENT DRAINAGE. ASSISTED PT TO BED SBA C CANE. ALL NEEDS MET, CALL LIGHT IN REACH
[2021-02-17 05:41] LABS: HEMATOCRIT 32.6 % (37.0-47.0); HEMOGLOBIN 10.5 gm/dL (12.0-15.0); MCH 32.7 pg (26.0-34.0); MCHC 32.3 g/dL (28.0-37.0); MCV 101.1 fL (80.0-100.0); RBC 3.22 mil/uL (4.20-5.00); RDW 13.9 % (10.5-14.5); WBC 6.9 thou/uL (4.0-11.0)
[2021-02-17 06:12] LABS: CALCIUM 7.9 mg/dL (8.5-10.1); CREATININE 1.1 mg/dL (0.6-1.0); POTASSIUM 3.8 mmol/L (3.5-5.1)
[2021-02-17 07:29] VITALS: BP 157/66
--- NOTE | 2021-02-17 11:26 | HC ---
[facility] [place] [address] [address] CONSULTATION Name: BRANDI MORROW Room #: 457-P ADM IN M.R.#: [id number] Admission: 02/16/21 Attend Phys: Malcom Allen MD Discharge: Date of : 49 Report #: [id number] THIS REPORT FOR: cc: Reynaldo Mckeon MD, David R. MD Barry, Joseph W. MD ~ DATE OF SERVICE: 02/16/2021 INFECTIOUS DISEASE CONSULTATION DATE OF CONSULTATION: 02/16/2021 ATTENDING PHYSICIAN: Dr. Allen. REASON FOR EVALUATION: Left medial malleolar chronic ulceration complicated by increased inflammation, suspected infection. HISTORY OF PRESENT ILLNESS: Chart reviewed. The patient examined. This is a 75-year-old woman with history of hypertension, has known lower extremity peripheral arterial disease, who has issues with ulcers involving her distal lower extremities dating back to 1987, noted has had vascular procedures to improve her perfusion, spontaneously developed an ulcer roughly 2 months ago involving the medial aspect, overlying her malleolus on the left. She describes it as quite painful. In the recent days, had noted increasing greenish type drainage. Due to the concern about infection, she was evaluated in the emergency room. Coronavirus testing was negative. Plain film of the ankle shows no acute osseous changes. Lactic acid 1.3. She denies significant systemic illness. No fevers, chills. Appetite has been satisfactory. No pulmonary or gastrointestinal related complaints. She had undergone cultures of her blood. CURRENT MEDICINES: Include vancomycin, given a dose of ceftriaxone as well. ALLERGIES: LISTED TO NEOMYCIN, BACITRACIN, PENICILLIN, CEPHALOSPORINS, TETRACYCLINE AND QUINOLONES. PAST MEDICAL HISTORY: As described above, severe lower extremity arterial occlusive disease, hypertension, reflux, high cholesterol, chronic ulcers, suspect venous stasis insufficiency, dermatitis as well. SOCIAL HISTORY: Smokes cigarettes, half pack a day for 50 years. No ethanol, no illicit drug use. FAMILY HISTORY: Noncontributory. REVIEW OF SYSTEMS: Otherwise, unremarkable. [facility] [address] [place] [address] CONSULTATION Name: BRANDI MORROW Room #: 457-[facility] IN .R.#: [id number] Admission: 02/16/21 Attend Phys: Malcom Allen MD Discharge: Date of : 49 Report #: [id number] PHYSICAL EXAMINATION: GENERAL: She appears somewhat chronically ill, mildly undernourished. She is generally lucid, mild to moderate distress. VITAL SIGNS: Temperature 97.6, pulse 79, respirations 17, blood pressure 161/48. SKIN: Warm, dry, no rashes. HEENT: Normocephalic. Extraocular muscles intact. NECK: Supple. LUNGS: Diminished breath sounds. HEART: Regular, soft systolic murmur. ABDOMEN: Mildly distended, nontender. EXTREMITIES: Chronic dermopathy. Lower extremities with fairly extensive scarring around the ankle, in particular the left medial malleolus. There is a somewhat dusky appearing wound. There is no particular odor, no drainage at this point. the margins have moderate degree of inflammation, generally appears somewhat desiccated. GENITOURINARY AND RECTAL: Deferred. LABORATORY DATA: Lactic acid 1.3. X-ray as described above. Electrolytes: Sodium 143, potassium 3.8, chloride 106, bicarbonate is 29, anion gap of 8, BUN and creatinine 27 and 1.4, glucose of 124. LFTs unremarkable. Albumin 3.6, total protein 6.6. Estimated GFR of 37. Coronavirus testing was negative. CBC: White count of 9.7, H and H 11.8 and 36.6, platelets of 357. ASSESSMENT AND PLAN: Chronic ulcer, left medial malleolus. We have multifactorial etiology. Certainly vasculopathy would be a concern given her history, may need additional arterial studies, likely has some underlying venous stasis insufficiency as well. She is a candidate for compression, it is not entirely clear. Encouraged elevation. We will continue empiric broad spectrum therapy, given the appearance of the wound, we would be concerned about a polymicrobial etiology. She is apparently taking and tolerating the vancomycin. We will add aztreonam as well. Continue wound care as prescribed and incentive spirometry. Certainly at risk for complications. <ELECTRONICALLY SIGNED> By: Vaibhav Bryant MD 02/17/21 [id number] Vaibhav Bryant MD /nt
[2021-02-17 12:00] VITALS: BP 133/51
--- NOTE | 2021-02-17 15:21 | NUR ---
TODAY THIS PT HAS HAD SOME STATED PAIN IN WHICH SHE WAS MEDICATED SHE HAS HAD HER DRESSINGS CHANGED AND HAS BEEN TOLERATING HER MEDICATIONS AND FLUIDS WELL. SHE IS OTHERWISE IN HER ROOM AWAITING FOR THE NEXT PLAN.
--- NOTE | 2021-02-17 15:31 | NUR ---
PT ADMITTED RELATED TO L MEDIAL MALLEOLUS ULCERATION. CM REVIEWED CHART AND SPOKE WITH CARE TEAM. CM MET WITH PT AT BEDSIDE THIS DAY. PT APPEARED TO BE A&O X4. CM ROLE INTRODUCED. PT INDICATED SHE LIVES IN A HOUSE WITH HER DTR. PT INDICATED SHE HAD USED A SPC IN THE HOME. PT INDICATED NO HH OR OP THERAPY. 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 PT'S PCP IS DR. JANUARY CORTES.PT IS ON IV ABX, WC AND ORTHO CONSULTED. CM FOLLOWING REGARDING DC PLANNING.
[2021-02-17 19:57] VITALS: BP 123/58
--- NOTE | 2021-02-17 23:00 | NUR ---
PT ALERT AND ORIENTED X 4. AMB TO BR WITH CANE AND ASSIST X 1 WITHOUT DIFFICULTY. NON-PRODUCTIVE COUGH NOTED. IV INFUSING ORDERED. PT C/O PAIN IN LEFT FOOT. HYDROCODONE GIVEN ORDERED. DRESSING C/D/I TO LEFT FOOT. HS DRESSING NOT DONE SINCE PT HAD AM DRESSING DONE LATE AFTERNOON. PT CHECKED ON HOURLY ROUNDS.
[2021-02-18] VITALS (7 sets, daily range): BP systolic 133–172; BP diastolic 44–79
--- NOTE | 2021-02-18 12:33 | NUR ---
Notification of pt with left malleolus ulceration. hx chronic wounds, PAD, +tobacco use. Pt voices very good appetite and eats high protein foods consistently. Wt stable. NPO for debridement. Presents low nutrition risk
--- NOTE | 2021-02-18 15:00 | NUR ---
PT HAVING I&D OF LEFT LEG THIS DAY. PT IS ON IV VANC @12. CM FOLLOWING REGARDING DC PLANNING.
--- NOTE | 2021-02-18 15:06 | NUR ---
ASSUMED CARE OF PT AT 0700. THROUGHOUT THE MORNING PT RESTED QUIETLY IN HER ROOM WITH NO COMPLAINTS, VSS. ASSESSED L ANKLE WOUND IN AM WITH MD AND CHANGED DRESSING WITH [employer]. WAS KEPT NPO AFTER 2 BITES OF BREAKFAST FOR I+D PLANNED AT 2PM. AMBULATED WELL WITH THERAPY, FALL PRECAUTIONS IN PLACE. RETURNING FROM PROCEDURE NOW, WILL FOCUS ON PAIN MEDICATION AND REST THROUGHOUT AFTERNOON. WILL CONTINUE TO MONITOR.
--- NOTE | 2021-02-18 15:08 | NUR ---
PT HAVING I&D OF LEFT LEG THIS DAY. PT IS ON IV VANC Q12. THERAPY RECOMMENDING HOME HEALTH UPON DC. SHOULD PT ME MEDICALLY STABLE TO DC OVER WEEKEND CALL [facility] FA[facility] . CM FOLLOWING REGARDING DC PLANNING.
[2021-02-19 04:02] VITALS: BP 131/56
--- NOTE | 2021-02-19 05:05 | NUR ---
Pt. rested quietly at intervals during the night when checked on during frequent rounds. Dressing to left foot is dry and intact. Pt. given po pain meds for c/o pain to her left foot with somme relief noted (see emar).
[2021-02-19 06:51] LABS: HEMATOCRIT 30.2 % (37.0-47.0); HEMOGLOBIN 9.7 gm/dL (12.0-15.0)
[2021-02-19 07:00] LABS: POTASSIUM 4.3 mmol/L (3.5-5.1)
[2021-02-19 07:39] VITALS: BP 159/71
[2021-02-19 16:35] VITALS: BP 156/61
--- NOTE | 2021-02-19 18:43 | NUR ---
ASSUMED CARE OF PT AT 0700. PT CONTINUES TO BE AOX4, AMBULATE WITH SBA, PAIN CONTROLLED WITH INFREQUENT USES OF HYDRO, WITH NO NAUSEA AND STABLE VITALS. WOUND DRESSING CLEAN DRY INTACT, NO DRAINAGE. PT COMPLAINED OF BEING ON LIQUID DIET THROUGHOUT THE DAY BUT ID MD NEVER SAW HER. CALLED MD FONTENOT TO ASK FOR DIET CHANGE FOR DINNER AT LEAST. DIET SWITCHED TO REGULAR PER MD. PT RESTING IN ROOM, WILL CONTINUE TO MONITOR.
[2021-02-19 20:26] VITALS: BP 149/71
[2021-02-20 06:04] LABS: HEMATOCRIT 30.1 % (37.0-47.0); HEMOGLOBIN 9.7 gm/dL (12.0-15.0); MCH 32.5 pg (26.0-34.0); MCHC 32.1 g/dL (28.0-37.0); MCV 101.1 fL (80.0-100.0); RBC 2.98 mil/uL (4.20-5.00); RDW 13.9 % (10.5-14.5); WBC 8.5 thou/uL (4.0-11.0)
[2021-02-20 07:09] LABS: CALCIUM 7.7 mg/dL (8.5-10.1); CREATININE 1.1 mg/dL (0.6-1.0); POTASSIUM 3.6 mmol/L (3.5-5.1)
[2021-02-20 08:07] VITALS: BP 158/62
--- NOTE | 2021-02-20 09:28 | NUR ---
ASSUMED CARE AT 1900, PT HAS PRODUCTIVE COUGH WITH WHEEZING AUSCULTATED ON THE TRACHEA, RESOLVES AFTER CLEARING SECRETION AND HAVING BREATHING TREATMENT, REMAINS TO BE ON PAIN MANAGEMENT FROM THE LEFT ANKLE, NO ADVERSE REACTION NOTED FROM THE CURRENT TX WILL CONTINUE TO MONITOR.
[2021-02-20 16:19] VITALS: BP 169/75
--- NOTE | 2021-02-20 17:56 | NUR ---
Pt is A & O x4. Pt VS stable. Pt wound dressing changed my wound MD. Pt received medications as ordered. Pt is SBA with ambulation and independent with ADLs and cares. Pt is able to make needs known.
[2021-02-20 19:54] VITALS: BP 168/74
--- NOTE | 2021-02-21 02:16 | NUR ---
ASSUEMD CARE OF PT AT SHIFT CHANGE. PT IS AOX4 AND LETS NEEDS BE KNOWN. PT IS UP AD KALEB. PT REPORTED SOME LLE PAIN; PRNS PROVIDED. PT DENIED NAUSEA OR SOA. ASSESSMENT CHARTED. IV ABX CONTINUED. LLE DRESSING IS C/D/I. PT WAS ABLE TO GET COMFORTABLE AND SLEEP PART OF THE SHIFT. PT HAD ELEVATED BP; OTHER VSS. NO S/S OF ACUTE DISTRESS. WILL CONTINUE TO MONITOR FOR CHANGES.
[2021-02-21 05:00] VITALS: BP 153/72
[2021-02-21 09:30] VITALS: BP 145/64
[2021-02-21 11:08] VITALS: BP 163/64
[2021-02-21 12:39] VITALS: BP 154/64
--- NOTE | 2021-02-21 14:33 | NUR ---
Alert and orientated X 4. Calm and cooperative without s/o distress. Reported pain of 10 prior to drsg change, stated it was much improved and rated it a 5 after med. Breath sounds clear with good aeration. No nasal flaring or retractions. Reg HR auscultated. Color pink with brisk capillary refill and palpable peripheral pulses. Voiding yellow urine per toilet. Active bowel sounds over soft, rounded abdomen. States last BM was 2 days ago. NS infusing per R hand IV, soft and flat, flushes without difficulty. Wants to be discharged today, Dr. Allen states if all is fine at 1500 to page him and he will write discharge orders. Currently in room without s/o distress.
[2021-02-21 16:47] VITALS: BP 154/64
--- NOTE | 2021-02-21 16:48 | NUR ---
Pt anxious to dc home but she is still on iv atb and getting bid dressing changes. Cultures still pending but possible transition to po atb. Dayanna michel updated as the pt will need wound mngt in the home and home eliseo ochoa.
[2021-02-21] MEDS ORDERED: CIPROFLOXACIN500 M1 PO (16:58)
[2021-02-21] MEDS ORDERED: NORVASC10 MG PO (16:58)
[2021-02-21 17:24] VITALS: BP 154/64
== END 2021-02-21 17:30 | disposition home or self-care (01) | DRG 570 ==
LOC: ER 10:16 → EROBS 12:14 → 4W 12:14
PROVIDERS: Emergency Medicine; Orthopaedic Surgery Foot and Ankle Surgery; ADMIT Hospitalist; ATTEND Hospitalist
PROC: 0JBR0ZZ Excision of Left Foot Subcutaneous Tissue and Fascia, Open Approach (ICD-10-PCS; principal; 2021-02-18)
DX: L97.329 Non-pressure chronic ulcer of left ankle with unspecified severity (principal); N17.0 Acute kidney failure with tubular necrosis; S91.002A Unspecified open wound, left ankle, initial encounter; I73.9 Peripheral vascular disease, unspecified; N18.9 Chronic kidney disease, unspecified; J44.9 Chronic obstructive pulmonary disease, unspecified; I87.2 Venous insufficiency (chronic) (peripheral); R53.81 Other malaise; E78.5 Hyperlipidemia, unspecified; E03.9 Hypothyroidism, unspecified; F17.210 Nicotine dependence, cigarettes, uncomplicated; Z20.822 Contact with and (suspected) exposure to COVID-19; I12.9 Hypertensive chronic kidney disease with stage 1 through stage 4 chronic kidney disease, or unspecified chronic kidney disease; E78.00 Pure hypercholesterolemia, unspecified; K21.9 Gastro-esophageal reflux disease without esophagitis; Z95.820 Peripheral vascular angioplasty status with implants and grafts; Z88.8 Allergy status to other drugs, medicaments and biological substances; Z88.6 Allergy status to analgesic agent; Z88.1 Allergy status to other antibiotic agents; Z91.010 Allergy to peanuts; Z79.82 Long term (current) use of aspirin; Z79.899 Other long term (current) drug therapy; Z71.6 Tobacco abuse counseling; X58.XXXA Exposure to other specified factors, initial encounter; Y93.89 Activity, other specified; Y92.89 Other specified places as the place of occurrence of the external cause; Y99.8 Other external cause status; Z23 Encounter for immunization
CPT/HCPCS: 10040; 50010; 50101; 50386; 57091; 57119; 57120; 57180; 62110; 62900; 70005

== ENCOUNTER → 2021-02-23 | Outpatient (CLI) | payer OTHER ==
[~2021-02-23] MED LIST changes: +ACID REDUCER20 MG PO; +CIPROFLOXACIN500 M1 PO; +NORVASC10 MG PO; +SYMBICORT80 MCG/4.1; +SYMBICORT80 MCG/4.1 PO
== END ==
LOC: HYPER 07:57
PROVIDERS: ATTEND Emergency Medicine
DX: L97.322 Non-pressure chronic ulcer of left ankle with fat layer exposed (principal); L97.822 Non-pressure chronic ulcer of other part of left lower leg with fat layer exposed; I87.2 Venous insufficiency (chronic) (peripheral); I73.9 Peripheral vascular disease, unspecified; I10 Essential (primary) hypertension; E78.5 Hyperlipidemia, unspecified; E03.9 Hypothyroidism, unspecified; Z87.891 Personal history of nicotine dependence; Z79.899 Other long term (current) drug therapy; Z79.82 Long term (current) use of aspirin

== ENCOUNTER → 2021-03-09 | Outpatient (CLI) | payer OTHER | LOC: HYPER 09:24 | PROVIDERS: ATTEND Emergency Medicine | DX: L97.322 Non-pressure chronic ulcer of left ankle with fat layer exposed (principal); L97.822 Non-pressure chronic ulcer of other part of left lower leg with fat layer exposed; I87.2 Venous insufficiency (chronic) (peripheral); I73.9 Peripheral vascular disease, unspecified; I10 Essential (primary) hypertension; E78.5 Hyperlipidemia, unspecified; E03.9 Hypothyroidism, unspecified; Z87.891 Personal history of nicotine dependence; Z79.82 Long term (current) use of aspirin; Z79.899 Other long term (current) drug therapy ==

== ENCOUNTER → 2021-03-14 | Outpatient (CLI) | payer OTHER | LOC: SJCVCIMAG | PROVIDERS: ATTEND Internal Medicine Cardiovascular Disease | DX: I65.23 Occlusion and stenosis of bilateral carotid arteries (principal); E78.00 Pure hypercholesterolemia, unspecified; I70.209 Unspecified atherosclerosis of native arteries of extremities, unspecified extremity; I10 Essential (primary) hypertension; I25.10 Atherosclerotic heart disease of native coronary artery without angina pectoris; M79.604 Pain in right leg; M79.605 Pain in left leg ==

== ENCOUNTER → 2021-03-15 | Outpatient (CLI) | payer OTHER | LOC: SJCVC 13:40 | PROVIDERS: ATTEND Nuclear Medicine Nuclear Cardiology | DX: I73.9 Peripheral vascular disease, unspecified (principal); I77.9 Disorder of arteries and arterioles, unspecified; I25.10 Atherosclerotic heart disease of native coronary artery without angina pectoris; I10 Essential (primary) hypertension; E78.00 Pure hypercholesterolemia, unspecified; E78.5 Hyperlipidemia, unspecified; K21.9 Gastro-esophageal reflux disease without esophagitis; I65.23 Occlusion and stenosis of bilateral carotid arteries; F17.210 Nicotine dependence, cigarettes, uncomplicated; Z88.0 Allergy status to penicillin; Z88.1 Allergy status to other antibiotic agents; Z88.5 Allergy status to narcotic agent; Z88.8 Allergy status to other drugs, medicaments and biological substances; Z79.899 Other long term (current) drug therapy; Z79.82 Long term (current) use of aspirin ==

== ENCOUNTER → 2021-03-23 | Outpatient (CLI) | payer OTHER | LOC: HYPER 08:54 | PROVIDERS: ATTEND Emergency Medicine | DX: L97.322 Non-pressure chronic ulcer of left ankle with fat layer exposed (principal); L97.822 Non-pressure chronic ulcer of other part of left lower leg with fat layer exposed; I87.2 Venous insufficiency (chronic) (peripheral); I73.9 Peripheral vascular disease, unspecified; I10 Essential (primary) hypertension; E78.5 Hyperlipidemia, unspecified; E03.9 Hypothyroidism, unspecified; Z87.891 Personal history of nicotine dependence; Z79.82 Long term (current) use of aspirin; Z79.899 Other long term (current) drug therapy; Z98.890 Other specified postprocedural states ==

== ENCOUNTER → 2021-04-13 | Outpatient (CLI) | payer OTHER | LOC: HYPER 09:14 | PROVIDERS: ATTEND Emergency Medicine | DX: L97.322 Non-pressure chronic ulcer of left ankle with fat layer exposed (principal); I87.2 Venous insufficiency (chronic) (peripheral); I73.9 Peripheral vascular disease, unspecified; I10 Essential (primary) hypertension; E78.5 Hyperlipidemia, unspecified; E03.9 Hypothyroidism, unspecified; K21.9 Gastro-esophageal reflux disease without esophagitis; Z87.891 Personal history of nicotine dependence; Z79.82 Long term (current) use of aspirin ==

== ENCOUNTER → 2021-04-27 | Outpatient (CLI) | payer OTHER | LOC: HYPER 08:55 | PROVIDERS: ATTEND Emergency Medicine | DX: L97.322 Non-pressure chronic ulcer of left ankle with fat layer exposed (principal); L97.822 Non-pressure chronic ulcer of other part of left lower leg with fat layer exposed; I87.2 Venous insufficiency (chronic) (peripheral); I73.9 Peripheral vascular disease, unspecified; I10 Essential (primary) hypertension; E78.5 Hyperlipidemia, unspecified; E03.9 Hypothyroidism, unspecified; Z87.891 Personal history of nicotine dependence; Z79.82 Long term (current) use of aspirin; Z79.899 Other long term (current) drug therapy ==

== ENCOUNTER → 2021-05-18 | Outpatient (CLI) | payer OTHER | LOC: HYPER 08:29 | PROVIDERS: ATTEND Emergency Medicine | DX: L97.322 Non-pressure chronic ulcer of left ankle with fat layer exposed (principal); L97.822 Non-pressure chronic ulcer of other part of left lower leg with fat layer exposed; I87.2 Venous insufficiency (chronic) (peripheral); I73.9 Peripheral vascular disease, unspecified; I10 Essential (primary) hypertension; E78.5 Hyperlipidemia, unspecified; E03.9 Hypothyroidism, unspecified; Z87.891 Personal history of nicotine dependence; Z79.82 Long term (current) use of aspirin; Z79.899 Other long term (current) drug therapy ==

== ENCOUNTER → 2021-06-08 | Outpatient (CLI) | payer OTHER | LOC: HYPER 08:59 | PROVIDERS: ATTEND Emergency Medicine | DX: L97.322 Non-pressure chronic ulcer of left ankle with fat layer exposed (principal); I87.2 Venous insufficiency (chronic) (peripheral); I73.9 Peripheral vascular disease, unspecified; I10 Essential (primary) hypertension; E78.5 Hyperlipidemia, unspecified; E03.9 Hypothyroidism, unspecified; K21.9 Gastro-esophageal reflux disease without esophagitis; Z87.891 Personal history of nicotine dependence; Z79.82 Long term (current) use of aspirin ==

== ENCOUNTER → 2021-07-06 | Outpatient (CLI) | payer OTHER | LOC: HYPER 09:01 | PROVIDERS: ATTEND Emergency Medicine | DX: L97.322 Non-pressure chronic ulcer of left ankle with fat layer exposed (principal); L97.822 Non-pressure chronic ulcer of other part of left lower leg with fat layer exposed; I87.2 Venous insufficiency (chronic) (peripheral); I73.9 Peripheral vascular disease, unspecified; I10 Essential (primary) hypertension; E78.5 Hyperlipidemia, unspecified; E03.9 Hypothyroidism, unspecified; Z98.890 Other specified postprocedural states; Z87.891 Personal history of nicotine dependence; Z79.82 Long term (current) use of aspirin; Z79.899 Other long term (current) drug therapy ==